=== PATIENT | female | born 1960 ===

== ENCOUNTER 2022-01-28 18:00 | Outpatient (CLI) | payer BC | END 2022-01-28 18:01 | disposition home or self-care (01) | LOC: SLEEPLAB 18:00 | PROVIDERS: ATTEND Internal Medicine Pulmonary Disease | DX: G51.9 Disorder of facial nerve, unspecified (principal); G47.33 Obstructive sleep apnea (adult) (pediatric); R06.83 Snoring; G47.00 Insomnia, unspecified | CPT/HCPCS: 95800 ==